=== PATIENT | male | born 1995 ===

== ENCOUNTER 2020-08-30 05:55 | Day surgery (SDC) | payer OTHER ==
[~2020-08-30] VITALS: Ht 172.7 cm; Wt 62.0 kg
[2020-08-30 06:42] VITALS: BP 138/78
[2020-08-30] MEDS ORDERED: EPINEPHRINE 1 MG/ML, 1ML ONE (06:48)
[2020-08-30] MEDS ORDERED: OXYMETAZOLINE NASAL SPRAY 0.05%,30ML ONE (06:48)
[2020-08-30] MEDS ORDERED: LIDOCAINE/PF 1%, 30ML ONE (06:48)
[2020-08-30] MEDS ORDERED: BACITRACIN OINT 500U/GM, 15 GM ONE (06:48)
[2020-08-30] MEDS ORDERED: NONE PER PT (06:51)
[2020-08-30] MEDS ORDERED: FENTANYL PF 100 MCG/2ML ONE (06:56)
[2020-08-30] MEDS ORDERED: MIDAZOLAM 1 MG/ML, 2ML ONE (06:56)
[2020-08-30] MEDS ORDERED: LIDOCAINE-MPF 1%, 2ML INFIL ONE (07:00)
[2020-08-30] MEDS ORDERED: LACTATED RINGERS 1,000 ML IV SCH (07:00)
[2020-08-30] MEDS ORDERED: CHLORHEXIDINE 15 ML UDC PO ONE (07:00)
[2020-08-30] MEDS ORDERED: DEXAMETHASONE 4 MG/ML, 1ML ONE (07:20)
[2020-08-30] MEDS ORDERED: HYDROcodone/APAP 7.5-325MG/15ML UDC PO PRN (07:30)
[2020-08-30] MEDS ORDERED: PROMETHAZINE 25 MG/ML, 1ML IVPush PRN (07:30)
[2020-08-30] MEDS ORDERED: ONDANSETRON 2MG/ML, 2ML IVPush PRN (07:30)
[2020-08-30] MEDS ORDERED: HYDROmorphone 1 MG/ML, 1ML INJ IVPush PRN (07:30)
[2020-08-30] MEDS ORDERED: MEPERIDINE/PF 25MG/0.5ML IVPush PRN (07:30)
[2020-08-30] MEDS ORDERED: FENTANYL PF 100 MCG/2ML IV PRN (07:30)
[2020-08-30] MEDS ORDERED: OXYcodone 5 MG/5 ML ORAL.SOL UDC PO PRN (07:30)
[2020-08-30] MEDS ORDERED: PROPOFOL 10 MG/ML, 20ML ONE (08:37)
[2020-08-30] MEDS ORDERED: ROCURONIUM 10MG/ML,5ML ONE (08:37)
[2020-08-30] MEDS ORDERED: GLYCOPYRROLATE 0.2MG/1ML, 5ML ONE (08:37)
[2020-08-30] MEDS ORDERED: SUCCINYLCHOLINE 20 MG/ML, 10ML ONE (08:37)
[2020-08-30] MEDS ORDERED: CEFAZOLIN 1,000 MG ONE (08:37)
[2020-08-30] MEDS ORDERED: NEOSTIGMINE 1 MG/ML, 10ML ONE (08:37)
[2020-08-30] MEDS ORDERED: ONDANSETRON 2MG/ML, 2ML ONE (08:37)
[2020-08-30] MEDS ORDERED: HYDROcodone/APAP 7.5-325MG/15ML UDC ONE (08:55)
== END 2020-08-30 10:30 | disposition home or self-care (01) ==
LOC: OUT 05:55
PROVIDERS: ATTEND Otolaryngology
DX: J34.2 Deviated nasal septum (principal); J34.3 Hypertrophy of nasal turbinates; Z20.822 Contact with and (suspected) exposure to COVID-19
CPT/HCPCS: 30140; 30520; 87635; 88304; 88311; J0171; J0330; J0690; J1100; J2250; J2405; J2704; J2710; J3010; J7120